=== PATIENT | female | born 1990 | race Caucasian/White ===

== ENCOUNTER 2018-11-27 20:52 | Inpatient (IN) | payer MEDICAID ==
[2018-11-27 23:01] LABS: ADD UMIC NO; UR ASCORBIC ACID NEGATIVE (NEGATIVE); UR BACTERIA FEW /HPF (NONE SEEN); UR BILIRUBIN (Dip) NEGATIVE (NEGATIVE); UR BLOOD (Dip) NEGATIVE (NEGATIVE); UR CLARITY SLIGHTLY CLOUDY (CLEAR); UR COLOR YELLOW (YELLOW); UR GLUCOSE (Dip) NEGATIVE (NEGATIVE); UR KETONES (Dip) NEGATIVE (NEGATIVE); UR LEUKOCYTE ESTERASE (Dip) NEGATIVE Leu/ul (NEGATIVE); UR MUCUS FEW /HPF (NONE SEEN); UR NITRITE (Dip) NEGATIVE (NEGATIVE); UR RBC 1 /HPF (0-5); UR SPECIFIC GRAVITY (Dip) 1.012 (1.003-1.030); UR SQUAMOUS EPITHELIAL CELL FEW /HPF (FEW); UR TOTAL PROTEIN (Dip) NEGATIVE (NEGATIVE); UR UROBILINOGEN (Dip) NEGATIVE (NEGATIVE); UR WBC 3 /HPF (0-5)
[2018-11-27] MEDS: LACTATED RINGER'S 1,000 ML IV (23:29)
[2018-11-27 23:41] LABS: ADD MAN DIFF? NO
[2018-11-27 23:45] LABS: WHITE BLOOD COUNT 7.9 10^3/ul (4.8-10.8)
[2018-11-27 23:45] LABS: BASOPHIL # 0.1 10^3/ul (0.0-0.1); BASOPHILS % 0.6 % (0.0-2.0); EOSINOPHILS # 0.1 10^3/ul (0.0-0.5); EOSINOPHILS % 1.4 % (0.0-7.0); HEMATOCRIT 34.5 % (37.0-47.0); HEMOGLOBIN 11.8 g/dl (12.0-16.0); LYMPHOCYTES # 2.6 10^3/ul (0.8-2.9); LYMPHOCYTES % 32.6 % (15.0-51.0); MEAN CORPUSCULAR HGB CONC 34.2 g/dl (32.0-37.0); MEAN CORPUSCULAR VOLUME 87.8 fl (82.0-101.0); MEAN PLATELET VOLUME 9.8 fl (7.4-10.4); NEUTROPHIL # 4.2 10^3/ul (1.6-7.5); PLATELET COUNT 272 10^3/UL (140-415); RED BLOOD COUNT 3.93 10^6/ul (4.20-5.40); RED CELL DISTRIBUTION WIDTH 13.3 % (11.5-14.5)
[2018-11-27] MEDS: BETAMET NA PHOS/AC(6 MG/ML) 2 ML INJ SYG IM (23:56)
[2018-11-28] MEDS: AMPICILLIN 2 GM/NS (PMX) 100 ML IV (00:08)
[2018-11-28 00:09] LABS: ALANINE AMINOTRANSFERASE 19 IU/L (13-69); ALBUMIN 3.7 g/dl (3.3-4.9); ALBUMIN/GLOBULIN RATIO 1.02; ALKALINE PHOSPHATASE 91 IU/L (42-121); ANION GAP 7 (5-13); ASPARTATE AMINO TRANSFERASE 25 IU/L (15-46); BILIRUBIN,INDIRECT 0.2 mg/dl (0-1.1); BILIRUBIN,TOTAL 0.2 mg/dl (0.2-1.3); BLOOD UREA NITROGEN 8 mg/dl (7-20); CALCIUM 9.5 mg/dl (8.4-10.2); CARBON DIOXIDE 24 mmol/L (21-31); CHLORIDE 104 mmol/L (97-110); CREATININE 0.51 mg/dl (0.44-1.00); Estimated GFR > 60 mL/min (>60); GLUCOSE 83 mg/dl (70-220); POTASSIUM 4.1 mmol/L (3.5-5.1); SODIUM 135 mmol/L (135-144); TOTAL PROTEIN 7.3 g/dl (6.1-8.1)
[2018-11-28] MEDS: AMPICILLIN 1 GM/NS (PMX) 50 ML IV ×2 (04:29→08:15)
[2018-11-28] MEDS ORDERED: PRENATAL VITAMIN PO (09:00)
[2018-11-28] MEDS ORDERED: ACETAMINOPHEN 325 MG TAB PO (19:00)
[2018-11-28] MEDS: BETAMET NA PHOS/AC(6 MG/ML) 2 ML INJ SYG IM (23:00)
== END 2018-11-28 23:20 | disposition home or self-care (01) | DRG 832 ==
LOC: OBT 20:52 → L-D 11-28 00:17 → OBT 23:14 → L-D 23:14
PROC: 4A1HXCZ Monitoring of Products of Conception, Cardiac Rate, External Approach (ICD-10-PCS; principal; 2018-11-27)
DX: O60.03 Preterm labor without delivery, third trimester (principal); O26.873 Cervical shortening, third trimester; Z3A.28 28 weeks gestation of pregnancy
CPT/HCPCS: 76815; 76817; 76818; 80053; 81001; 81003; 85025; 87086

== ENCOUNTER 2019-02-05 19:09 | Outpatient (CLI) | payer MEDICAID ==
[2019-02-05 19:58] LABS: ADD UMIC NO; UR ASCORBIC ACID NEGATIVE (NEGATIVE); UR BILIRUBIN (Dip) NEGATIVE (NEGATIVE); UR BLOOD (Dip) NEGATIVE (NEGATIVE); UR CLARITY CLEAR (CLEAR); UR COLOR STRAW (YELLOW); UR GLUCOSE (Dip) NEGATIVE (NEGATIVE); UR KETONES (Dip) NEGATIVE (NEGATIVE); UR LEUKOCYTE ESTERASE (Dip) NEGATIVE Leu/ul (NEGATIVE); UR NITRITE (Dip) NEGATIVE (NEGATIVE); UR SPECIFIC GRAVITY (Dip) 1.005 (1.003-1.030); UR TOTAL PROTEIN (Dip) NEGATIVE (NEGATIVE); UR UROBILINOGEN (Dip) NEGATIVE (NEGATIVE)
== END 2019-02-05 22:10 | disposition home or self-care (01) ==
LOC: OBT 19:09 → L-D 19:10 → OBT 22:10
DX: O47.1 False labor at or after 37 completed weeks of gestation (principal); Z3A.38 38 weeks gestation of pregnancy
CPT/HCPCS: 81003

== ENCOUNTER 2019-02-10 22:10 | Inpatient (IN) | payer MEDICAID ==
[2019-02-10] MEDS ORDERED: LACTATED RINGER'S 1,000 ML IV (23:09)
[2019-02-10] MEDS ORDERED: BUTORPHANOL 2 MG INJ IV ×2 (23:30)
[2019-02-10] MEDS ORDERED: CARBOPROST 250 MCG INJ IM (23:30)
[2019-02-10] MEDS ORDERED: LIDOCAINE 1% (MPF) 30 ML INJ INJ (23:30)
[2019-02-10] MEDS ORDERED: IBUPROFEN 600 MG TAB PO (23:30)
[2019-02-10] MEDS: MINERAL OIL LIGHT 10 ML VIAL TOP (23:30)
[2019-02-10] MEDS ORDERED: MISOPROSTOL 200 MCG TAB PR (23:30)
[2019-02-10] MEDS ORDERED: OXYTOCIN 30 UNITS/LR 500 ML IV ×2 (23:30)
[2019-02-11] MEDS: LACTATED RINGER'S 1,000 ML IV (00:11)
[2019-02-11 00:25] LABS: ADD MAN DIFF? NO
[2019-02-11 00:31] LABS: WHITE BLOOD COUNT 9.3 10^3/ul (4.8-10.8)
[2019-02-11 00:31] LABS: BASOPHIL # 0.1 10^3/ul (0.0-0.1); BASOPHILS % 0.5 % (0.0-2.0); EOSINOPHILS # 0.1 10^3/ul (0.0-0.5); EOSINOPHILS % 0.5 % (0.0-7.0); HEMATOCRIT 35.1 % (37.0-47.0); HEMOGLOBIN 11.9 g/dl (12.0-16.0); LYMPHOCYTES # 2.7 10^3/ul (0.8-2.9); LYMPHOCYTES % 28.9 % (15.0-51.0); MEAN CORPUSCULAR HEMOGLOBIN 28.8 pg (29.0-33.0); MEAN CORPUSCULAR HGB CONC 33.9 g/dl (32.0-37.0); MONOCYTE # 0.9 10^3/ul (0.3-0.9); MONOCYTES % 9.1 % (0.0-11.0); NEUTROPHIL # 5.6 10^3/ul (1.6-7.5); NEUTROPHILS % 60.5 % (39.0-77.0); NUCLEATED RED BLOOD CELLS% 0.3 /100WBC (0.0-0.0); PLATELET COUNT 340 10^3/UL (140-415); RED BLOOD COUNT 4.13 10^6/ul (4.20-5.40); RED CELL DISTRIBUTION WIDTH 13.9 % (11.5-14.5)
[2019-02-11 00:53] LABS: INR 0.89; PARTIAL THROMBOPLASTIN TIME 27.5 Sec (23.0-35.0); PROTIME 12.2 Sec (11.9-14.9)
[2019-02-11 01:21] LABS: HEPATITIS B SURFACE ANTIGEN NEGATIVE (NEGATIVE)
[2019-02-11] MEDS ORDERED: FENTAnyl 2MCG/ML-ROPIV 0.2% 100 ML (01:33)
[2019-02-11] MEDS ORDERED: ONDANSETRON 4 MG INJ IV ×2 (02:30→10:00)
[2019-02-11] MEDS ORDERED: TRIMETHOBENZAMIDE 100 MG/ML VIAL IM (02:30)
[2019-02-11] MEDS ORDERED: NALOXONE (0.4 MG/ML) INJ IV (02:30)
[2019-02-11] MEDS ORDERED: DIPHENHYDRAMINE 50 MG INJ IV (02:30)
[2019-02-11] MEDS: FENTAnyl 2MCG/ML-ROPIV 0.2% 100 ML BAG EPI (06:29)
[2019-02-11] MEDS: OXYTOCIN 30 UNITS/LR 500 ML IV ×3 (08:21→13:53)
[2019-02-11] MEDS: METHYLERGONOVINE 0.2 MG INJ IM (09:22)
[2019-02-11] MEDS ORDERED: ACETAMINOPHEN 325 MG TAB PO (10:00)
[2019-02-11] MEDS ORDERED: NACL 0.9% 3 ML SYG IV (10:00)
[2019-02-11] MEDS ORDERED: METHYLERGONOVINE 0.2 MG INJ IM (10:00)
[2019-02-11] MEDS ORDERED: CARBOPROST 250 MCG INJ IM (10:00)
[2019-02-11] MEDS ORDERED: OXYTOCIN 30 UNITS/LR 500 ML IV (10:00)
[2019-02-11] MEDS ORDERED: SENNA/DOCUSATE NA (8.6MG/50MG) TAB PO (10:00)
[2019-02-11] MEDS ORDERED: MISOPROSTOL 200 MCG TAB PR (10:00)
[2019-02-11] MEDS ORDERED: OXYCODONE/ASPIRIN (4.88/325) TAB PO (10:00)
[2019-02-11] MEDS: IBUPROFEN 600 MG TAB PO ×2 (12:00→18:05)
[2019-02-11] MEDS: WITCH HAZEL/GLYCERIN PAD PR (13:54)
[2019-02-11] MEDS: OXYCODONE/ASPIRIN (4.88/325) TAB PO (16:20)
[2019-02-11] MEDS: SENNA/DOCUSATE NA (8.6MG/50MG) TAB PO (21:17)
[2019-02-11 22:30] LABS: RAPID PLASMA REAGIN NONREACTIVE (NR)
[2019-02-12] MEDS: IBUPROFEN 600 MG TAB PO ×4 (00:06→18:07)
[2019-02-12] MEDS: LANOLIN HPA 1 PKT TOP (00:06)
[2019-02-12 08:10] LABS: ADD MAN DIFF? NO
[2019-02-12 08:14] LABS: WHITE BLOOD COUNT 9.7 10^3/ul (4.8-10.8)
[2019-02-12 08:14] LABS: BASOPHILS % 0.3 % (0.0-2.0); EOSINOPHILS # 0.2 10^3/ul (0.0-0.5); EOSINOPHILS % 1.5 % (0.0-7.0); HEMATOCRIT 30.1 % (37.0-47.0); HEMOGLOBIN 10.1 g/dl (12.0-16.0); LYMPHOCYTES # 2.8 10^3/ul (0.8-2.9); MEAN CORPUSCULAR HEMOGLOBIN 28.8 pg (29.0-33.0); MEAN CORPUSCULAR HGB CONC 33.6 g/dl (32.0-37.0); MEAN CORPUSCULAR VOLUME 85.8 fl (82.0-101.0); MEAN PLATELET VOLUME 9.8 fl (7.4-10.4); MONOCYTE # 1.1 10^3/ul (0.3-0.9); MONOCYTES % 10.9 % (0.0-11.0); NEUTROPHIL # 5.6 10^3/ul (1.6-7.5); PLATELET COUNT 252 10^3/UL (140-415); RED BLOOD COUNT 3.51 10^6/ul (4.20-5.40); RED CELL DISTRIBUTION WIDTH 14.1 % (11.5-14.5)
[2019-02-12] MEDS: SENNA/DOCUSATE NA (8.6MG/50MG) TAB PO ×2 (09:30→21:02)
[2019-02-13] MEDS: IBUPROFEN 600 MG TAB PO ×3 (00:41→11:26)
[2019-02-13] MEDS: SENNA/DOCUSATE NA (8.6MG/50MG) TAB PO (08:42)
== END 2019-02-13 15:55 | disposition home or self-care (01) | DRG 807 ==
LOC: OBT 22:10 → OBV 02-11 06:35 → L-D 22:11 → OBT 23:00 → L-D 23:00 → PP1 02-11 11:41
PROVIDERS: Obstetrics & Gynecology
PROC: 10E0XZZ Delivery of Products of Conception, External Approach (ICD-10-PCS; principal; 2019-02-11)
PROC: 0HQ9XZZ Repair Perineum Skin, External Approach (ICD-10-PCS; 2019-02-11)
DX: O70.0 First degree perineal laceration during delivery (principal); O90.81 Anemia of the puerperium; D64.9 Anemia, unspecified; Z37.0 Single live birth; Z3A.40 40 weeks gestation of pregnancy
CPT/HCPCS: 62322; 76815; 85025; 85610; 85730; 86592; 86850; 86900; 86901; 87340